=== PATIENT | female | born 1965 | race Caucasian/White ===

== ENCOUNTER 2024-01-01 12:26 | Outpatient (AMB) | payer OTHER, SELFPAY ==
--- NOTE | 2024-01-01 12:53 | AM.OFFWIN_ITS ---
Intake Vital Signs 01/01/24 12:55 Height 5 ft 3 in Weight 225 lb BMI 39.9 BP 134/80 Blood Pressure Location Lt brachial Position Sitting Pulse 92 Pulse Source Pulse Oximeter Pulse Oximetry (%) 96 Oxygen Delivery Method Room Air Intake Visit Reasons: MORNING SHOW [employer] asthma flare up Intake Note: Patient is here with asthma flare up after Covid on 11/02, she had Paxlovid. Allergies methylprednisolone [From Medrol] Allergy (Intermediate, Verified 01/01/24 13:00) psychosis budesonide [From Symbicort] Allergy (Unknown, Unverified 01/01/24 13:00) Unknown fexofenadine [From ] Allergy (Unknown, Verified 01/01/24 12:56) Unknown fluticasone [From Flonase] Allergy (Unknown, Unverified 01/01/24 13:00) unkownn formoterol [From Symbicort] Allergy (Unknown, Unverified 01/01/24 13:00) Unknown omeprazole [From Prilosec] Allergy (Unknown, Unverified 01/01/24 13:00) Unknown HPI MORNING SHOW [employer] asthma flare up HPI Details Patient has had longstanding worsened asthma with cough/wheeze over the last month since she had a COVID infection. She has been treated with multiple rounds of steroid She is using her albuterol inhaler when she has symptoms and also has a Breo Ellipta that she is taking as prescribed. She says ordinarily her asthma is well controlled. She also notes sinus pressure and discharge. Review of Systems Const Details: See HPI Denies chills and Denies fever(s) Physical Exam Vital Signs: Last Vital Signs Pulse 92 01/01/24 12:55 BP 134/80 01/01/24 12:55 Pulse Ox 96 01/01/24 12:55 Oxygen Delivery Method Room Air 01/01/24 12:55 BMI result Body Mass Index 39.9 Const General: no acute distress and well developed Nutritional Appearance: well nourished Orientation/consciousness: patient oriented x3 HEENT Other: Sinus tenderness to palpation and significant nasal congestion TMs with mild serous fluid but no pus Head: Yes normocephalic and Yes atraumatic Eyes General: appearance normal, both eyes and all related structures Pupils: Equal, round and reactive pupils present EOM: EOMs intact bilaterally Resp Other: Mildly decreased air movement but no diminished breath sounds. A few scattered wheezes After her nebulizer treatment she has better air movement but no wheezing. Mildly coarse breath sounds bilaterally. No diminished breath sounds and no crackles or rhonchi. Effort & Inspection: normal respiratory effort Auscultation: clear to auscultation bilaterally Cardio Rate: regular rate Rhythm: regular rhythm Heart sounds: S1 normal heart sound present, S2 normal heart sound present, no gallops, no murmurs and no rubs Neuro General: patient oriented x3 and gait normal Cranial nerves: Yes Equal, round and reactive pupils present Psych Affect: normal affect Assessment & Plan Assessment & Plan (1) Sinus infection: Code(s): J32.9 - Chronic sinusitis, unspecified Plan: Asthma exacerbation with sinus infection. Also may have bacterial overgrowth after viral illness last month, but no definitive evidence of pneumonia. Also some hypoxia which improved after DuoNeb treatment. Has some improvement in air movement after treatment She has no diminished breath sounds in any lung [place]. Will give her a script for a Z-Edmundo and a longer prednisone taper of 10 days. Continue inhaled medications and allergy medication Follow-up with PCP and children's book author as recommended (2) Asthma exacerbation: Code(s): J45.901 - Unspecified asthma with (acute) exacerbation Plan: As above Encouraged her to use her albuterol inhaler up to every 4 hours as needed for cough/wheeze And follow-up with her primary physician and children's book author. Plan Lastly, encouraged her to avoid acid reflux, using her Nexium and avoiding over filling or eating to close to bedtime so as not to cause any microaspiration of stomach acid while sleeping. Medications: New azithromycin (Zithromax Z-Edmundo) take 500 mg today (day 1), then 250 mg for 4 days (days 2-5) PO 5 days 6 tabs 0RF prednisone 4 tabs daily for 4 days, 3 tabs daily for 2 days, 2 tabs daily for 2 days, 1 tab daily for 2 days PO daily; 10 days 28 tabs 0RF Coding Level of Care Code Est Pt Level 3 (33744) Diagnoses Sinus infection J32.9 Asthma exacerbation J45.901
[2024-01-01 12:55] VITALS: BP 134/80; PULSE 92; O2SAT 96; BMI 39.9
== END 2024-01-01 14:32 | disposition home or self-care (01) ==
PROVIDERS: Visit Provider Family Medicine
DX: J32.9 Chronic sinusitis, unspecified (principal); J45.901 Unspecified asthma with (acute) exacerbation
CPT/HCPCS: 99213